=== PATIENT | female | born 1995 | race Caucasian/White ===

== ENCOUNTER 2021-01-11 16:34 | Inpatient (IN) ==
[2021-01-11] MEDS ORDERED: MEPERIDINE 50 MG/1 ML VIAL IV PRN (17:22)
[2021-01-11] MEDS ORDERED: BUTORPHANOL 2 MG/ML VIAL IV PRN (17:22)
[2021-01-11] MEDS ORDERED: BUTORPHANOL 1 MG/ML VIAL IV PRN (17:22)
[2021-01-11] MEDS ORDERED: LACTATED RINGERS 1,000 ML IV PRN (17:22)
[2021-01-11] MEDS ORDERED: ONDANSETRON 4 MG/2 ML VIAL IV PRN (17:22)
[2021-01-11] MEDS: OXYTOCIN/LR 20 UNIT/1,000 ML BAG IV PRN (17:50)
[2021-01-11 17:57] LABS: Basophils % 0.4 % (0.0-0.8); Eosinophils # 0.1 10*3/uL (0.0-0.87); Eosinophils % 0.6 % (0.00-10.9); Hematocrit 37.9 VOL% (35.7-47.0); Hemoglobin 12.3 GM/DL (12.0-16.0); Immature Granulocytes % 0.8 %; Immature Granulocytes Absolute 0.09 #; Lymphocytes # 2.3 10*3/uL (1.4-4.0); Lymphocytes % 20.6 % (21.3-54.2); Mean Corpuscular HGB Conc 32.5 GM/DL (32-36); Mean Corpuscular Volume 88.3 FL (87-102); Mean Platelet Volume 11.8 FL (9.6-12.0); Monocytes % 4.4 % (1.7-12.7); Neutrophils % 73.2 % (38.7-73.9); Platelet Count 215 T/CUMM (130-400); Red Blood Count 4.29 MC/CUMM (3.8-5.5); Red Cell Distribution Width 13.7 % (9.3-17.3); White Blood Count 11.4 T/CUMM (4-12)
[2021-01-11] MEDS ORDERED: diphenhydrAMINE 50 MG/1 ML VIAL IV PRN ×2 (20:47)
[2021-01-11] MEDS ORDERED: CITRIC ACID/SODIUM CITRATE 30 ML UDCUP PO ONE (20:47)
[2021-01-11] MEDS ORDERED: NALOXONE 0.4 MG/ML VIAL IV PRN (20:47)
[2021-01-11] MEDS ORDERED: LACTATED RINGERS 1,000 ML IV ONE (20:47)
[2021-01-11] MEDS ORDERED: hydrOXYzine HCL 25 MG/1 ML VIAL IM PRN (20:47)
[2021-01-11] MEDS ORDERED: FAMOTIDINE 20 MG/2 ML VIAL IV ONE ×2 (20:47→20:51)
[2021-01-11] MEDS ORDERED: PROMETHAZINE 25 MG/1 ML VIAL IM ONE (20:47)
[2021-01-11] MEDS ORDERED: CITRIC ACID/SODIUM CITRATE 30 ML UDCUP ONE (20:51)
[2021-01-11] MEDS ORDERED: fentaNYL 2 MCG/ROPIV 0.2% EPID 100 ML EPIDURAL SCH (21:00)
[2021-01-12] MEDS: ePHEDrine 50 MG/ML VIAL IV PRN ×3 (01:05→01:29)
[2021-01-12 01:08] LABS: Bilirubin,Urine Negative (Negative); Blood, Urine Negative (Negative); Glucose,Urine (UA) Negative (Negative); Ketones,Urine 80 mg/dL (Negative); Mucus,Urine Few /LPF (Occasional); Nitrite,Urine Negative (Negative); Protein,Urine Negative; RBC,Urine <1 /HPF (0-4); Squamous Epithelial Cell,Urine Occasional /HPF (0-10); Urine Appearance CLEAR (Clear); Urine Color Yellow (Yellow); Urine Urobilinogen < 2.0 EU/DL (0.2-1.0); WBC,Urine 1 /HPF (0-6)
[2021-01-12] MEDS ORDERED: TRANEXAMIC ACID 1,000 MG/10 ML VIAL ONE (02:44)
[2021-01-12] MEDS ORDERED: miSOPROStoL 200 MCG TABLET ONE (02:44)
[2021-01-12] MEDS ORDERED: CARBOPROST TROMETHAMINE 250 MCG/ML AMP IM ONE (02:44)
[2021-01-12] MEDS ORDERED: METHYLERGONOVINE 0.2 MG/1 ML AMP ONE (02:44)
[2021-01-12] MEDS ORDERED: METHYLERGONOVINE 0.2 MG/1 ML AMP IM ONE (03:00)
[2021-01-12 03:07] LABS: Cord Venous Blood HCO3 22.5 MMOL/L; Cord Venous Blood PO2 39.2 MMHG
[2021-01-12] MEDS: OXYTOCIN/LR 20 UNIT/1,000 ML BAG IV PRN (06:22)
[2021-01-12] MEDS ORDERED: ACETAMINOPHEN 500 MG TABLET PO PRN (08:18)
[2021-01-12] MEDS: IBUPROFEN 800 MG TABLET PO PRN ×2 (08:41→16:13)
[2021-01-12] MEDS: DOCUSATE SODIUM 100 MG CAPSULE PO SCH ×2 (08:41→20:34)
[2021-01-12] MEDS ORDERED: BENZOCAINE 20%/MENTHOL 0.5% SPRAY 56 GM CAN TOP PRN (09:20)
[2021-01-13] MEDS: IBUPROFEN 800 MG TABLET PO PRN ×2 (00:03→09:19)
[2021-01-13 06:32] LABS: Basophils % 0.3 % (0.0-0.8); Eosinophils # 0.1 10*3/uL (0.0-0.87); Hematocrit 29.6 VOL% (35.7-47.0); Immature Granulocytes % 0.5 %; Immature Granulocytes Absolute 0.05 #; Lymphocytes # 2.9 10*3/uL (1.4-4.0); Lymphocytes % 30.5 % (21.3-54.2); Mean Corpuscular HGB Conc 32.8 GM/DL (32-36); Mean Corpuscular Volume 88.1 FL (87-102); Mean Platelet Volume 11.2 FL (9.6-12.0); Monocytes % 5.7 % (1.7-12.7); Platelet Count 173 T/CUMM (130-400); Red Cell Distribution Width 13.6 % (9.3-17.3); White Blood Count 9.6 T/CUMM (4-12)
[2021-01-13 06:41] LABS: Hemoglobin 9.7 GM/DL (12.0-16.0); Red Blood Count 3.36 MC/CUMM (3.8-5.5)
[2021-01-13 08:43] VITALS: BP 119/67
[2021-01-13] MEDS: DOCUSATE SODIUM 100 MG CAPSULE PO SCH (09:17)
[2021-01-13] MEDS ORDERED: RHO(D) IMMUNE GLOBULIN 300 MCG SYRINGE IM ONE (10:10)
== END 2021-01-13 14:15 | disposition home or self-care (01) | DRG 807 ==
LOC: N.LDOUT 16:34 → N.LD 16:37 → N.OB 01-12 06:24
PROVIDERS: ADMIT Obstetrics & Gynecology; ATTEND Obstetrics & Gynecology